=== PATIENT | female | born 1995 | race African-American/Black ===

== ENCOUNTER → 2020-05-01 | Outpatient (CLI) | payer MEDICAID ==
--- NOTE | 2020-05-01 09:49 | RAD ---
EXAM: Ultrasound OB Greater than 14 weeks INDICATION: Reason: High Risk ; Anatomy scan- PT 30 weeks / Spl. Instructions: / History: TECHNIQUE: Real-time obstetrical ultrasound was performed with permanent freeze-frame documentation. COMPARISON: None. FINDINGS: POSITION: Cephalic HEART RATE: 139 bpm ANUJ: 10.4 cm PLACENTA: Anterior CERVICAL LENGTH: 4.6 cm MATERNAL UTERUS: Unremarkable. MATERNAL ADNEXA: Unremarkable. AGE/DATES: Gestational Age by LMP: 30 weeks 0 days Gestation Age by US: 29 weeks 4 days EDC by LMP: July 10, 2020 EDC by US: July 13, 2020 WEIGHT: 1392 grams +/- 206 grams PERCENTILE WEIGHT: 40% BIOMETRIC PARAMETERS: BPD: 7.3 cm corresponding with 29 weeks 3 days HC: 27.3 cm corresponding with 29 weeks 5 days AC: 25.2 cm corresponding with 29 weeks 3 days FL: 5.6 cm corresponding with 29 weeks 3 days ANATOMY: CARDIAC: Normal four chamber heart. The left ventricle outflow tract is normal. The right ventricle o utflow tract was not as well demonstrated on this exam. UMBILICAL CORD: Normal 3 vessel cord. Normal cord insertion. BRAIN: Unremarkable. NOSE/LIPS: Unremarkable. SPINE: Unremarkable. EXTREMITIES: Unremarkable. STOMACH: Unremarkable. KIDNEYS: Unremarkable. BLADDER: Unremarkable. IMPRESSION: Normal OB ultrasound demonstrating a single viable fetus in cephalic position. Estimated gestational age of 29 weeks 4 days and EDC of July 13, 2020. Electronically signed by: Cailin Anton MD (05/01/2020 9:47 AM) [id number]
== END ==
LOC: US 09:53
PROVIDERS: ATTEND Obstetrics & Gynecology
DX: O09.93 Supervision of high risk pregnancy, unspecified, third trimester (principal); O26.843 Uterine size-date discrepancy, third trimester; Z3A.29 29 weeks gestation of pregnancy
CPT/HCPCS: 76805

== ENCOUNTER 2020-05-27 08:20 | Observation (INO) | payer MEDICAID ==
[2020-05-27] MEDS ORDERED: ACETAMINOPHEN 325 MG TABLET. PO PRN (08:45)
[2020-05-27] MEDS ORDERED: IV RINGERS,LACTATED 1000ML 1,000 ML IV PRN (08:45)
[2020-05-27 09:04] LABS: BILIRUBIN,URINE NEGATIVE (NEG); CLARITY,URINE CLEAR; COLOR,URINE YELLOW; NITRITE,URINE NEGATIVE (NEG); PH,URINE 7.5 (<5.0-8.0); PROTEIN,URINE NEGATIVE (NEG-TRACE); UROBILINOGEN,URINE 0.2 mg/dL (0.2 mg/dL)
[2020-05-27 09:16] LABS: RBC,URINE OCC /HPF (0-2)
[2020-05-27 09:17] LABS: BACTERIA,URINE MODERATE /HPF (0-FEW)
== END 2020-05-27 10:45 | disposition home or self-care (01) ==
LOC: 3 SO LND 08:20
PROVIDERS: ADMIT Obstetrics & Gynecology; ATTEND Obstetrics & Gynecology
DX: O62.9 Abnormality of forces of labor, unspecified (principal); O26.893 Other specified pregnancy related conditions, third trimester; R19.7 Diarrhea, unspecified; Z3A.34 34 weeks gestation of pregnancy; Z79.899 Other long term (current) drug therapy
CPT/HCPCS: 59025; 81001; 87086; G0378; G0379

== ENCOUNTER 2020-07-07 04:46 | Inpatient (IN) | payer MEDICAID ==
[~2020-07-07] VITALS: Ht 154.9 cm; Wt 75.7 kg
[2020-07-07] MEDS ORDERED: IV RINGERS,LACTATED 1000ML 1,000 ML IV SCH (05:00)
[2020-07-07 05:41] LABS: BARBITURATES NEG (NEG); BENZODIAZEPINES NEG (NEG); CANNABINOIDS NEG (NEG); COCAINE NEG (NEG); METHADONE NEG (NEG); OPIATES NEG (NEG); PHENCYCLIDINE NEG (NEG)
[2020-07-07 05:42] LABS: AMPHETAMINE/METHAMPHETAMINE NEG (NEG)
[2020-07-07 05:42] LABS: AMNIO PT NEGATIVE
[2020-07-07 05:43] LABS: BILIRUBIN,URINE NEGATIVE (NEG); CLARITY,URINE CLEAR; COLOR,URINE YELLOW; NITRITE,URINE NEGATIVE (NEG); PH,URINE 6.5 (<5.0-8.0); PROTEIN,URINE NEGATIVE (NEG-TRACE); UROBILINOGEN,URINE 0.2 mg/dL (0.2 mg/dL)
[2020-07-07 05:54] LABS: BACTERIA,URINE 0 /HPF (0-FEW); RBC,URINE 0 /HPF (0-2)
[2020-07-07 07:00] VITALS: BP 144/89
[2020-07-07] MEDS ORDERED: TERBUTALINE 1 MG/ML VIAL. SQ PRN (07:00)
[2020-07-07] MEDS ORDERED: OXYTOCIN 30 UNIT/500 ML PREMIX 500 ML IV PRN ×3 (07:00→23:45)
[2020-07-07] MEDS ORDERED: IBUPROFEN 400 MG TABLET. PO PRN (07:00)
[2020-07-07] MEDS ORDERED: IV RINGERS,LACTATED 1000ML 1,000 ML IV PRN (07:00)
[2020-07-07] MEDS ORDERED: ONDANSETRON PF 4 MG/2 ML VIAL. IVP PRN (07:00)
[2020-07-07] MEDS ORDERED: PENICILLIN G K 5,000,000 UNIT in IV DEXTROSE 5% 100ML 100 ML IV ONE (07:00)
[2020-07-07] MEDS ORDERED: fentaNYL PF VIAL 100 MCG/2 ML VIAL IVP PRN (07:00)
[2020-07-07] MEDS ORDERED: LIDOCAINE 1% PF 30 ML VIAL. INJ PRN (07:00)
[2020-07-07] MEDS ORDERED: 0.9 % SODIUM CHLORIDE 10 ML DISP.SYRIN. IV PRN ×2 (07:00→23:45)
[2020-07-07 07:18] LABS: BASO % 0 % (0-3); EOS # 0.1 x10^3/uL (0.0-0.7); EOS % 1 % (0-3); HEMATOCRIT 29.6 % (36.0-47.0); HEMOGLOBIN 9.6 g/dL (12.0-15.5); LYMPH # 2.6 x10^3/uL (1.0-4.8); LYMPH % 29 % (24-48); MEAN CORPUSCULAR HEMOGLOBIN 25 pg (25-35); MEAN CORPUSCULAR HGB CONC 33 g/dL (31-37); MEAN CORPUSCULAR VOLUME 76 fL (79-100); MONO # 0.7 x10^3/uL (0.0-1.1); MONO % 8 % (0-9); NEUT # 5.5 x10^3/uL (1.8-7.7); NEUT % 61 % (31-73); PLATELET COUNT 288 x10^3/uL (140-400); RED BLOOD COUNT 3.87 x10^6/uL (3.50-5.40); RED CELL DISTRIBUTION WIDTH 15.6 % (11.5-14.5); WHITE BLOOD COUNT 8.9 x10^3/uL (4.0-11.0)
[2020-07-07 07:22] LABS: CREATININE,RANDOM URINE 100.9 mg/dL (Not Establ.)
[2020-07-07 07:53] LABS: ALBUMIN 2.5 g/dL (3.4-5.0); ALBUMIN/GLOBULIN RATIO 0.6 (1.0-1.7); CALCIUM 8.8 mg/dL (8.5-10.1); CREATININE 0.7 mg/dL (0.6-1.0); GFR 125.5; POTASSIUM 3.2 mmol/L (3.5-5.1); TOTAL BILIRUBIN 0.2 mg/dL (0.2-1.0); TOTAL PROTEIN 6.7 g/dL (6.4-8.2)
--- NOTE | 2020-07-07 09:52 | PDOC1 ---
OB - History Hx of Present Care: Limited Care Ultrasounds: Normal mid trimester US Obstetrical Complications: Gestational Hypertension Medical Complications: None Past Family/Social History * Past Medical, Surgical, Family and Obstetric Histories reviewed from chart. Blood Type: Unknown Rubella: Unknown RPR/VDRL: Unknown GBS Status: Negative HBsAG: Unknown OB - Chief Complaint & HPI Date of Admission: Date of Admission: Jul 07, 2020 at 04:46 Chief Complaint/History : 3 Para: 2 EGA: 39 Reason for admission: induction of labor (Gestational HTN, limited PNC) Admission Nurse Assessment Rev: Yes OB - Admission Exam Physical Exam Vitals: VS - Last 72 Hours, by Label Date Time Temp Pulse Resp B/P (MAP) Pulse Ox O2 Delivery O2 Flow Rate FiO2 07/07/20 07:00 98.5 77 18 144/89 (107) 98 Room Air 98.5 HEENT: Normal Heart: Regular Rate Lungs: Clear Abdomen: Gravid, Non tender, Soft Extremities: Edema Reflexes: Normal Cervical Dilatation: 3cm Effacement: 75% Station: -2 Membranes: Intact Heart Rate: Normal Accelerations: Accelerations Present Decelerations: No decelerations Contractions on Admission: >10 Minutes Apart Intensity: Mild Text A: 39 wks IUP Gestational HTN Limited PNC GBS unknown P: Admit for IOL gestational HTN pitocin. Start Pen G prophylaxis. JIM CANTU Jr, MD Jul 07, 2020 09:52
[2020-07-07] MEDS: PENICILLIN G K 2,500,000 UNIT in IV DEXTROSE 5% 50 ML IV SCH ×3 (13:28→23:25)
[2020-07-07] MEDS ORDERED: hydrALAZINE 20 MG/ML VIAL. ONE (18:41)
[2020-07-07] MEDS ORDERED: hydrALAZINE 20 MG/ML VIAL. IVP PRN (18:45)
[2020-07-07] MEDS ORDERED: L&D EPIDURAL SYRINGE 50 ML ONE ×2 (19:38→22:53)
[2020-07-07] MEDS ORDERED: ROPIVacaine 0.2% PF 10 ML VIAL. ONE ×2 (19:39→20:00)
[2020-07-07] MEDS ORDERED: L&D EPIDURAL 50 ML SYRINGE. ONE (20:00)
[2020-07-07] MEDS ORDERED: L&D EPIDURAL SYRINGE 50 ML EPID PRN (23:00)
--- NOTE | 2020-07-07 23:42 | PDOC ---
VAGINAL DELIVERY DATE DATE: 07/07/20 TIME: 23:41 : 3 Para: 3 EGA: 39 VAGINAL DELIVERY: VTX VACCUM ASSISTED: No PLACENTA: Spontaneous 8/9 SEX: Female WEIGHT Weight [ 6 lbs. 8 oz ] Nuchal Cord: Yes, Times 1 Amniotic Fluid: Clear PAIN: Epidural EPISIOTOMY: No EXTENSION: No EBL 300 ml COMPLICATIONS none CONDITION pt. stable Signs of Intrauterine Infectio: None Shoulder Dystocia: No JIM CANTU Jr, MD Jul 07, 2020 23:42
[2020-07-07] MEDS ORDERED: KETOROLAC 30 MG/ML VIAL. IV PRN (23:45)
[2020-07-07] MEDS ORDERED: diphenhydrAMINE ORAL ELIXIR 12.5 MG/5 ML ML PO PRN (23:45)
[2020-07-07] MEDS ORDERED: ONDANSETRON PF 4 MG/2 ML VIAL. IV PRN (23:45)
[2020-07-07] MEDS ORDERED: DOCUSATE SODIUM 100 MG CAPSULE. PO PRN (23:45)
[2020-07-07] MEDS ORDERED: SIMETHICONE 80 MG TAB.CHEW PO PRN (23:45)
[2020-07-07] MEDS ORDERED: ZOLPIDEM 5 MG TABLET. PO PRN (23:45)
[2020-07-07] MEDS ORDERED: MAG HYDROX/ALUMINUM HYD/SIMETH 30 ML ORAL.SUSP PO PRN (23:45)
[2020-07-08] MEDS: IBUPROFEN 400 MG TABLET. PO PRN ×3 (01:37→20:51)
[2020-07-08 02:30] VITALS: BP 129/63
[2020-07-08 03:43] VITALS: BP 126/60
[2020-07-08] MEDS: oxyCODONE/APAP 5/325 1 TAB TABLET PO PRN ×3 (06:06→22:46)
[2020-07-08 07:37] LABS: HEMATOCRIT 29.2 % (36.0-47.0); HEMOGLOBIN 9.4 g/dL (12.0-15.5); MEAN CORPUSCULAR VOLUME 76 fL (79-100); RED BLOOD COUNT 3.85 x10^6/uL (3.50-5.40); WHITE BLOOD COUNT 17.2 x10^3/uL (4.0-11.0)
[2020-07-08 07:38] LABS: BASO # 0.1 x10^3/uL (0.0-0.2); BASO % 0 % (0-3); EOS % 0 % (0-3); LYMPH % 12 % (24-48); MEAN CORPUSCULAR HEMOGLOBIN 25 pg (25-35); MEAN CORPUSCULAR HGB CONC 32 g/dL (31-37); MONO # 1.2 x10^3/uL (0.0-1.1); MONO % 7 % (0-9); NEUT % 81 % (31-73); PLATELET COUNT 297 x10^3/uL (140-400); RED CELL DISTRIBUTION WIDTH 15.8 % (11.5-14.5)
[2020-07-08] MEDS ORDERED: MULTIVITAMIN with MINERAL TABLET. PO SCH (09:00)
[2020-07-08] MEDS: FERROUS SULFATE 325 MG TABLET. PO SCH ×2 (09:26→17:12)
[2020-07-08 09:54] LABS: % BANDS 3 % (0-9); % LYMPHS 16 % (24-48); % MONOS 2 % (0-10); % SEGS 79 % (35-66); PLT ESTIMATE ADEQUATE (ADEQUATE)
[2020-07-08 10:35] VITALS: BP 126/65
--- NOTE | 2020-07-08 12:53 | PDOC ---
OB Progress Note Date of Service 07/08/20 Time of Evaluation 1250 Notes Pt. feeling well. No complaints. Lab Laboratory Tests Test 07/07/20 05:20 07/07/20 05:25 07/07/20 06:20 07/07/20 06:45 Urine Collection Type Void Urine Color Yellow Urine Clarity Clear Urine pH 6.5 (<5.0-8.0) Urine Specific [place] 1.010 (1.000-1.030) Urine Protein Negative mg/dL (NEG-TRACE) Urine Glucose (UA) Negative mg/dL (NEG) Urine Ketones (Stick) Negative mg/dL (NEG) Urine Blood Negative (NEG) Urine Nitrite Negative (NEG) Urine Bilirubin Negative (NEG) Urine Urobilinogen Dipstick 0.2 mg/dL (0.2 mg/dL) Urine Leukocyte Esterase Moderate (NEG) Urine RBC 0 /HPF (0-2) Urine WBC 11-20 /HPF (0-4) Urine Squamous Epithelial Cells Mod /LPF Urine Bacteria 0 /HPF (0-FEW) Urine Mucus Mod /LPF Urine Random Creatinine 100.9 mg/dL (Not Establ.) Urine Random Total Protein 12.6 mg/dL (Not Establ.) Urine Protein/Creatinine Ratio 125 mg/g (0-200) Urine Opiates Screen Neg (NEG) Urine Methadone Screen Neg (NEG) Urine Barbiturates Neg (NEG) Urine Phencyclidine Screen Neg (NEG) Urine Amphetamine/Methamphetamine Neg (NEG) Urine Benzodiazepines Screen Neg (NEG) Urine Cocaine Screen Neg (NEG) Urine Cannabinoids Screen Neg (NEG) Urine Ethyl Alcohol Neg (NEG) Amniotic Fluid Swab Test Negative White Blood Count 8.9 x10^3/uL (4.0-11.0) Red Blood Count 3.87 x10^6/uL (3.50-5.40) Hemoglobin 9.6 g/dL (12.0-15.5) Hematocrit 29.6 % (36.0-47.0) Mean Corpuscular Volume 76 fL (79-100) Mean Corpuscular Hemoglobin 25 pg (25-35) Mean Corpuscular Hemoglobin Concent 33 g/dL (31-37) Red Cell Distribution Width 15.6 % (11.5-14.5) Platelet Count 288 x10^3/uL (140-400) Neutrophils (%) (Auto) 61 % (31-73) Lymphocytes (%) (Auto) 29 % (24-48) Monocytes (%) (Auto) 8 % (0-9) Eosinophils (%) (Auto) 1 % (0-3) Basophils (%) (Auto) 0 % (0-3) Neutrophils # (Auto) 5.5 x10^3/uL (1.8-7.7) Lymphocytes # (Auto) 2.6 x10^3/uL (1.0-4.8) Monocytes # (Auto) 0.7 x10^3/uL (0.0-1.1) Eosinophils # (Auto) 0.1 x10^3/uL (0.0-0.7) Basophils # (Auto) 0.0 x10^3/uL (0.0-0.2) Sodium Level 137 mmol/L (136-145) Potassium Level 3.2 mmol/L (3.5-5.1) Chloride Level 103 mmol/L (98-107) Carbon Dioxide Level 23 mmol/L (21-32) Anion Gap 11 (6-14) Blood Urea Nitrogen 6 mg/dL (7-20) Creatinine 0.7 mg/dL (0.6-1.0) Estimated GFR (Cockcroft-Gault) 125.5 BUN/Creatinine Ratio 9 (6-20) Glucose Level 88 mg/dL (70-99) Calcium Level 8.8 mg/dL (8.5-10.1) Total Bilirubin 0.2 mg/dL (0.2-1.0) Aspartate Amino Transf (AST/SGOT) 15 U/L (15-37) Alanine Aminotransferase (ALT/SGPT) 12 U/L (14-59) Alkaline Phosphatase 222 U/L (46-116) Total Protein 6.7 g/dL (6.4-8.2) Albumin 2.5 g/dL (3.4-5.0) Albumin/Globulin Ratio 0.6 (1.0-1.7) Treponema pallidum Antibody Nonreactive (Nonreactive) Hepatitis B Surface Antigen Nonreactive (Nonreactive) SARS-CoV-2 Antigen (Rapid) Negative (NEGATIVE) Test 07/08/20 07:25 White Blood Count 17.2 x10^3/uL (4.0-11.0) Red Blood Count 3.85 x10^6/uL (3.50-5.40) Hemoglobin 9.4 g/dL (12.0-15.5) Hematocrit 29.2 % (36.0-47.0) Mean Corpuscular Volume 76 fL (79-100) Mean Corpuscular Hemoglobin 25 pg (25-35) Mean Corpuscular Hemoglobin Concent 32 g/dL (31-37) Red Cell Distribution Width 15.8 % (11.5-14.5) Platelet Count 297 x10^3/uL (140-400) Neutrophils (%) (Auto) 81 % (31-73) Lymphocytes (%) (Auto) 12 % (24-48) Monocytes (%) (Auto) 7 % (0-9) Eosinophils (%) (Auto) 0 % (0-3) Basophils (%) (Auto) 0 % (0-3) Neutrophils # (Auto) 14.0 x10^3/uL (1.8-7.7) Lymphocytes # (Auto) 2.0 x10^3/uL (1.0-4.8) Monocytes # (Auto) 1.2 x10^3/uL (0.0-1.1) Eosinophils # (Auto) 0.0 x10^3/uL (0.0-0.7) Basophils # (Auto) 0.1 x10^3/uL (0.0-0.2) Segmented Neutrophils % 79 % (35-66) Band Neutrophils % 3 % (0-9) Lymphocytes % 16 % (24-48) Monocytes % 2 % (0-10) Platelet Estimate Adequate (ADEQUATE) Laboratory Tests Test 07/08/20 07:25 White Blood Count 17.2 x10^3/uL (4.0-11.0) Red Blood Count 3.85 x10^6/uL (3.50-5.40) Hemoglobin 9.4 g/dL (12.0-15.5) Hematocrit 29.2 % (36.0-47.0) Mean Corpuscular Volume 76 fL (79-100) Mean Corpuscular Hemoglobin 25 pg (25-35) Mean Corpuscular Hemoglobin Concent 32 g/dL (31-37) Red Cell Distribution Width 15.8 % (11.5-14.5) Platelet Count 297 x10^3/uL (140-400) Neutrophils (%) (Auto) 81 % (31-73) Lymphocytes (%) (Auto) 12 % (24-48) Monocytes (%) (Auto) 7 % (0-9) Eosinophils (%) (Auto) 0 % (0-3) Basophils (%) (Auto) 0 % (0-3) Neutrophils # (Auto) 14.0 x10^3/uL (1.8-7.7) Lymphocytes # (Auto) 2.0 x10^3/uL (1.0-4.8) Monocytes # (Auto) 1.2 x10^3/uL (0.0-1.1) Eosinophils # (Auto) 0.0 x10^3/uL (0.0-0.7) Basophils # (Auto) 0.1 x10^3/uL (0.0-0.2) Segmented Neutrophils % 79 % (35-66) Band Neutrophils % 3 % (0-9) Lymphocytes % 16 % (24-48) Monocytes % 2 % (0-10) Platelet Estimate Adequate (ADEQUATE) Medications Current Medications Ringer's Solution 1,000 ml @ 125 mls/hr Q8H IV ; Start 07/07/20 at 05:00; Stop 07/07/20 at 23:51; Status DC Sodium Chloride (Normal Saline Flush) 3 ml QSHIFT PRN IV AFTER MEDS AND BLOOD DRAWS; Start 07/07/20 at 07:00; Stop 07/08/20 at 03:02; Status DC Ringer's Solution 1,000 ml @ 125 mls/hr Q8H PRN IV hydration; Start 07/07/20 at 07:00; Stop 07/08/20 at 03:02; Status DC Fentanyl Citrate (Fentanyl 2ml Vial) 100 mcg PRN Q30MIN PRN IVP Severe pain; Start 07/07/20 at 07:00; Stop 07/08/20 at 03:02; Status DC Ondansetron HCl (Zofran) 8 mg PRN Q6HRS PRN IVP NAUSEA/VOMITING; Start 07/07/20 at 07:00; Stop 07/07/20 at 23:51; Status DC Terbutaline Sulfate (Brethine) 0.25 mg 1X PRN PRN SQ SEE COMMENTS; Start 07/07/20 at 07:00; Stop 07/08/20 at 03:02; Status DC Lidocaine HCl (Xylocaine 1% Pf 30ml Vial) 30 ml 1X PRN PRN INJ SEE COMMENTS; Start 07/07/20 at 07:00; Stop 07/08/20 at 03:02; Status DC Oxytocin 500 ml @ 0 mls/hr CONT PRN IV SEE I/O RECORD Last administered on 07/07/20at 14:37; Start 07/07/20 at 07:00; Stop 07/07/20 at 23:51; Status DC Oxytocin 500 ml @ 0 mls/hr CONT PRN PRN IV Post delivery bleeding; Start at 07:00; Stop 07/08/20 at 03:02; Status DC Ibuprofen (Motrin) 800 mg PRN Q6HRS PRN PO PAIN; Start 07/07/20 at 07:00; Stop 07/07/20 at 23:51; Status DC Penicillin G Potassium [id number] unit/Dextrose 100 ml @ 100 mls/hr 1X ONCE IV Last administered on 07/07/20at 07:23; Start 07/07/20 at 07:00; Stop 07/08/20 at 03:02; Status DC Penicillin G Potassium [id number] unit/Dextrose 50 ml @ 100 mls/hr Q4H IV Last administered on 07/07/20at 23:25; Start 07/07/20 at 11:00; Stop 07/08/20 at 03:02; Status DC Hydralazine HCl (Apresoline Inj) may give 2nd dose in 10 min 1X PRN IVP ELEVATED BP, SEE COMMENTS Last administered on 07/07/20at 18:48; Start 07/07/20 at 18:45; Stop 07/07/20 at 20:20; Status DC Hydralazine HCl (Apresoline Inj) 20 mg STK-MED ONCE .ROUTE ; Start 07/07/20 at 18:41; Stop 07/07/20 at 18:42; Status DC Fentanyl Citrate 50 ml @ As Directed STK-MED ONCE .ROUTE ; Start 07/07/20 at 19:38; Stop 07/07/20 at 19:38; Status DC Ropivacaine (Naropin 0.2%) 10 ml STK-MED ONCE .ROUTE ; Start 07/07/20 at 19:39; Stop 07/07/20 at 19:39; Status DC Fentanyl Citrate 50 ml @ As Directed STK-MED ONCE .ROUTE ; Start 07/07/20 at 22:53; Stop 07/07/20 at 22:53; Status DC Fentanyl Citrate 50 ml @ 14 mls/hr CONT PRN EPID PAIN Last administered on 07/07/20at 22:57; Start 07/07/20 at 23:00; Stop 07/08/20 at 03:02; Status DC Sodium Chloride (Normal Saline Flush) 3 ml QSHIFT PRN IV AFTER MEDS AND BLOOD DRAWS; Start 07/07/20 at 23:45 Oxytocin 500 ml @ 125 mls/hr CONT PRN IV EXCESSIVE POST- BLEEDING; Start 07/07/20 at 23:45; Stop 07/08/20 at 07:44; Status DC Ibuprofen (Motrin) 800 mg PRN Q8HRS PRN PO INFLAMMATION Last administered on 07/08/20at 11:48; Start 07/07/20 at 23:45 Ondansetron HCl (Zofran) 4 mg PRN Q6HRS PRN IV NAUSEA/VOMITING 1ST CHOICE; Start 07/07/20 at 23:45 Docusate Sodium (Colace) 100 mg PRN BID PRN PO CONSTIPATION Last administered on 07/08/20at 09:26; Start 07/07/20 at 23:45 Al Hydroxide/Mg Hydroxide (Mylanta Plus Xs) 30 ml PRN Q4HRS PRN PO HEARTBURN / GAS; Start 07/07/20 at 23:45 Simethicone (Gas-X) 80 mg PRN AFTMEALHC PRN PO GAS / BLOATING; Start 07/07/20 at 23:45 Diphenhydramine HCl (Benadryl Oral Elixir) 12.5 mg PRN Q6HRS PRN PO ITCHING; Start 07/07/20 at 23:45 Ferrous Sulfate (Feosol) 325 mg BIDWMEALS PO Last administered on 07/08/20at 09:26; Start 07/08/20 at 08:00 Zolpidem Tartrate (Ambien) 5 mg PRN QHS PRN PO INSOMNIA, MAY REPEAT X1; Start 07/07/20 at 23:45 Oxycodone/ Acetaminophen (Percocet 5/325) 2 tab PRN Q4HRS PRN PO MODERATE PAIN, SEVERE PAIN Last administered on 07/08/20at 12:50; Start 07/07/20 at 23:45 Ketorolac Tromethamine (Toradol 30mg Vial) 30 mg PRN Q6HRS PRN IV INFLAMMATION/PAIN; Start 07/07/20 at 23:45; Stop 07/12/20 at 23:44 Multivitamins (Thera M Plus) 1 tab DAILY PO Last administered on 07/08/20at 09:26; Start 07/08/20 at 09:00 Fentanyl Citrate (Ehdysulq-Tdsyx-XL 3 Mcg-0.1%) 50 ml STK-MED ONCE .ROUTE ; Start 07/07/20 at 20:00; Stop 07/08/20 at 12:28; Status DC Ropivacaine (Naropin 0.2%) 10 ml STK-MED ONCE .ROUTE ; Start 07/07/20 at 20:00; Stop 07/08/20 at 12:28; Status DC Exam Abd: soft, non tender, fundus firm Assessment PPD#1 s/p Plan of Care: Continue current Tx, Mgmt JIM CANTU Jr, MD Jul 08, 2020 12:53
[2020-07-08 15:05] VITALS: BP 117/69
[2020-07-08 18:30] VITALS: BP 126/77
[2020-07-08 20:00] VITALS: BP 125/80
[2020-07-09 02:00] VITALS: BP 136/79
[2020-07-09 05:00] VITALS: BP 131/80
--- NOTE | 2020-07-09 08:27 | PDOC3 ---
OB DISCHARGE SUMMARY DATE OF ADMISSION: 07/07/20 DATE OF DISCHARGE: 07/09/20 REASON FOR ADMISSION: Induction of labor (Gestational HTN) INTRAPARTUM PROCEDURES: Spontanous Vag Deliv DISCHARGE DIAGNOSIS: Term Delivered DISCHARGE INFORMATION: Activity (ad lawrence), Diet (regular), Instructions (pelvic rest x 6 wks) HOSPITAL COURSE Term gestation delivered vaginally without complications. JIM CANTU Jr, MD Jul 09, 2020 08:27
--- NOTE | 2020-07-09 08:29 | DISCH ---
DISCHARGE INSTRUCTIONS Condition on Discharge Condition on Discharge: Stable Activity After Discharge Activity Instructions for Disc: Activity as tolerated Lifting Instructions after Dis: No heavy lifting Driving Instructions after Dis: Do not drive today Diet after Discharge Diet after Discharge: Regular Contacting the [facility] after DC Call your doctor for: Concerns you may have Follow-Up Follow up with: Dr. Yañez in 6 wks. JIM CANTU Jr, MD Jul 09, 2020 08:29
[2020-07-09 09:04] VITALS: BP 144/88
[2020-07-09 13:00] VITALS: BP 138/95
== END 2020-07-09 13:00 | disposition home or self-care (01) | DRG 807 ==
LOC: 3 SO LND 04:46 → OBSVTOIN 04:46 → 3 NORTH 07-08 19:53
PROVIDERS: ADMIT Obstetrics & Gynecology; ATTEND Obstetrics & Gynecology
PROC: 10E0XZZ Delivery of Products of Conception, External Approach (ICD-10-PCS; principal; 2020-07-07)
PROC: 3E0R3BZ Introduction of Anesthetic Agent into Spinal Canal, Percutaneous Approach (ICD-10-PCS; 2020-07-07)
PROC: 00HU33Z Insertion of Infusion Device into Spinal Canal, Percutaneous Approach (ICD-10-PCS; 2020-07-07)
DX: O13.4 Gestational [pregnancy-induced] hypertension without significant proteinuria, complicating childbirth (principal); Z37.0 Single live birth; Z3A.39 39 weeks gestation of pregnancy; O69.81X0 Labor and delivery complicated by cord around neck, without compression, not applicable or unspecified; Z20.822 Contact with and (suspected) exposure to COVID-19
CPT/HCPCS: 36415; 80053; 80307; 81001; 82570; 84112; 84156; 85007; 85025; 86592; 86762; 86850; 86900; 86901; 87086; 87340; 87426; 87653; J0360; J2540; J2590; J2795; J3010; J7060; U0003; G0378